=== PATIENT | male | born 1965 | race Caucasian/White ===

== ENCOUNTER → 2021-05-11 | Outpatient (CLI) | payer MEDICARE ==
[~2021-05-11] MED LIST: LISINOPRIL20 MG PO; XANAX1 MG PO; ZANAFLEX4 MG PO
[2021-05-11 08:43] LABS: URINE BILIRUBIN NEGATIVE (Negative); URINE BLOOD NEGATIVE (Negative); URINE CLARITY CLEAR; URINE COLOR YELLOW; URINE GLUCOSE-RANDOM NEGATIVE (Negative); URINE KETONES NEGATIVE (Negative); URINE LEUKOCYTES-REFLEX NEGATIVE (Negative); URINE NITRITE-REFLEX NEGATIVE (Negative); URINE PROTEIN NEGATIVE (Negative); URINE SPECIFIC GRAVITY 1.025 (1.005-1.030); URINE UROBILINOGEN 0.2 E.U./dl (0.2-1.0)
[2021-05-11 08:46] LABS: ABSOLUTE BASOPHILS 0.1 thou/uL (0.0-0.2); ABSOLUTE EOSINOPHILS 0.2 thou/uL (0.0-0.7); ABSOLUTE LYMPHOCYTES 1.5 thou/uL (0.8-5.3); ABSOLUTE MONOCYTES 0.6 thou/uL (0.0-1.2); ABSOLUTE NEUTROPHILS 4.3 thou/uL (1.6-8.1); EOSINOPHILS 2.4 %; HEMATOCRIT 48.5 % (42.0-52.0); HEMOGLOBIN 16.7 gm/dL (14.0-18.0); LYMPHOCYTES 22.7 %; MCH 31.1 pg (26.0-34.0); MCHC 34.3 g/dL (28.0-37.0); MCV 90.5 fL (80.0-100.0); MONOCYTES 9.6 %; MPV 7.2 fl. (7.2-11.1); NUCLEATED RBCS 0 /100WBC; PLATELET COUNT* 245 thou/uL (150-400); POLYS 64.3 %; RBC 5.36 mil/uL (4.50-6.00); RDW-CV 14.2 % (10.5-14.5); WBC 6.8 thou/uL (4.0-11.0)
[2021-05-11 08:52] LABS: PROTIME 10.7 Seconds (9.20-11.50)
[2021-05-11 09:12] LABS: ALBUMIN 3.9 g/dL (3.4-5.0); CREATININE 1.2 mg/dL (0.6-1.3); POTASSIUM 4.2 mmol/L (3.5-5.1); TOTAL BILIRUBIN 0.4 mg/dL (<0.1-1.0); TOTAL PROTEIN 7.6 g/dL (6.4-8.2)
--- NOTE | 2021-05-12 08:08 | EKG ---
[place] [address] ELECTROCARDIOGRAM REPORT Name: ALBA LOPES Room: [facility]#: [id number] Admission: 05/11/21 Attend Phys: Alba Street, Discharge: Date of : 67 Date of Service: 05/11/2146 Report #: [id number] THIS REPORT FOR: //name// [facility] Test Date: 2021-05-11 Test Time: 09:46:13 Pat Name: ALBA LOPES Department: Room: Gender: [employer] Sealer: Javier GOMEZ RN : 1965 Requested By: Alba Street Order Number: [id number] Ahmet MD: Nitin Graves Measurements Intervals [place] Rate: 82 P: 45 ME: 124 QRS: -40 QRSD: 110 T: 45 QT: 369 QTc: 431 Interpretive Statements Sinus rhythm Left axis deviation RSR' in V1 or V2, right VCD or RVH No previous ECG available for comparison Electronically Signed On 05-12-2021 8:07:58 CDT by Nitin Graves [email or web address] <ELECTRONICALLY SIGNED> By: Nitin Graves MD, [facility] 05/12/21806 5 5 Nitin Graves MD, [facility] /EPI
== END ==
LOC: M.LAB 08:14
PROVIDERS: ATTEND Orthopaedic Surgery
DX: Z01.818 Encounter for other preprocedural examination (principal); Z01.812 Encounter for preprocedural laboratory examination; M16.11 Unilateral primary osteoarthritis, right hip

== ENCOUNTER 2021-05-17 07:04 | Observation (INO) | payer MEDICARE ==
[~2021-05-17] VITALS: Ht 188 cm; Wt 118.8 kg
--- NOTE | ~2021-05-17 | OP ---
[facility] [address] [place] [address] OPERATIVE REPORT Name: CHRISTIANEERICALBA Jamil Room: [address] Deyanira#: [id number] Admission: 05/17/21 Attend Phys: Hanh Torres Discharge: Date of : 67 Report #: [id number] THIS REPORT FOR: cc: Yamil Lopez James E DO Greiner, Robert F. II DO ~ DATE OF SURGERY: 05/17/2021 PREOPERATIVE DIAGNOSIS: Right hip osteoarthritis. POSTOPERATIVE DIAGNOSIS: Right hip osteoarthritis. PROCEDURE: Right total hip arthroplasty. SURGEON: Alba Street II, DO. INDUSTRIAL LOCOMOTIVE OPERATOR: None. ANESTHESIA: General endotracheal. ESTIMATED BLOOD LOSS: 300 mL. ANTIBIOTICS: Ancef preoperatively. DRAINS: Medium Hemovac. COMPLICATIONS: None. CONDITION: The patient was stable to recovery room. IMPLANTS: Listed in operative record and progress note. BRIEF HISTORY: The patient in the preoperative area. Preoperative H and P was performed. Site was marked, questions were answered. Risks and benefits were discussed with the patient in detail about surgery. The patient wished to proceed assuming all risks. DESCRIPTION OF PROCEDURE: The patient was taken to the operative suite, placed supine on the operating table, given appropriate anesthesia. Patient's hip was placed in the [place] table leg pena and sterilely prepped and draped in supine position. Surgery began by longitudinal incision over the anterior portion of the hip. This was carried down to subcutaneous tissues. A small gunnar was then made in the tensor fascia and it was split along its fibers and retracted laterally. An H capsulotomy was then performed and careful hemostasis was maintained with electrocautery and Aquamantys. The head and neck cutting alignment guide was then checked under fluoroscopic [place] [address] OPERATIVE REPORT Name: ALBA LOPES Room: [address] James Mcmillan#: [id number] Admission: 05/17/21 Attend Phys: Hanh Torres Discharge: Date of : 67 Report #: [id number] was made to the head and neck and this was removed. Attention was turned to the acetabulum. Excess labrum was removed. It was then reamed in sequential fashion up to appropriate size. This showed excellent bleeding bone and excellent position on fluoroscopic guidance. The acetabular cup was malleted in position and secured with cancellous screws. Metal liner was then applied. The patient's leg was then rotated in the [place] table to expose the femur. It was then broached in sequential fashion up to appropriate size. The appropriate neck was then trialed with appropriate head length and shown to have excellent fit and fill and excellent stability of the hip through all range of motion. These trials were then removed. The final stem was then malleted into position and the final head was then malleted into position. It was reduced in appropriate fashion, checked with C-arm for appropriate leg length and showed to have excellent leg length throughout the exam without evidence of dislocation upon range of motion and shuck testing. Wound was then copiously irrigated. Hemostasis was maintained with electrocautery and cautery wand. The pain with a cocktail was injected. The H capsulotomy was then closed with #1 Vicryl in [id number] fashion. Tensor fascia was closed with #1 Vicryl in running fashion. Skin was closed with 2-0 Vicryl and a running 3-0 Monocryl. Dermabond and sterile dressing applied. The patient was transported to recovery in stable condition. Counts were correct throughout the procedure. By: [id number] II, DO /nt
[2021-05-17 16:58] VITALS: BP 133/79
--- NOTE | 2021-05-17 18:50 | NUR ---
PT WAS BROUGHT UP TO ROOM PER BED FROM PACU. PT HAS WORKED WITH THERAPY ALREADY AND GOT UP AND WALKED TO THE BATHROOM. VSS AFEBRILE. WILL CONTINUE TO MONITOR PLAN OF CARE.
[2021-05-17 20:00] VITALS: BP 140/91
[2021-05-17 23:49] VITALS: BP 103/57
[2021-05-18 04:00] VITALS: BP 114/62
[2021-05-18 04:51] LABS: HEMATOCRIT 36.2 % (42.0-52.0); HEMOGLOBIN 12.5 gm/dL (14.0-18.0)
--- NOTE | 2021-05-18 06:06 | NUR ---
ASSUMED PT CARE AT 1930. PT ALERT AND ORIENTED X4, POLITE AND COOPERATIVE WITH CARES. IVF AND ABX INFUSING TO LEFT HAND WITIHOUT DIFFICULTY. PT UP TO BATHROOM WITH CONTACT GUARD ASSIST, GAIT BELT AND WALKER. SMALL STOOL X1. HEMOVAC AND DRESSING TO RIGHT HIP INTACT. HEMOVAC EMPTIED AT 2040 OF 200 CC'S AND AGAIN AT 0120 OF 110 CC'S. MESSAGE LEFT FOR DR. ARAUJO THAT OUTPUT EXCEEDED 3OO CC'S. NO NEW ORDERS. PT WEARING CAPNO OVERNIGHT. BILAT FOOTPUMPS IN USE. AT BEDSIDE OVERNIGHT. CALL LIGHT IN REACH, BED ALARM ON FOR SAFETY. HOURLY ROUNDING IN PROGRESS, WILL CONTINUE TO MONITOR.
[2021-05-18 08:09] VITALS: BP 123/78
[2021-05-18 13:14] VITALS: BP 123/78
[2021-05-18 13:32] VITALS: BP 123/78
--- NOTE | 2021-05-18 14:04 | NUR ---
DISCHARGE HOME IN STABLE CONDITION. RIGHT HIP DRESSING REINFORCED WITH OBSITE. PT VERBALIZED UNDERSTANDING TO ALL DISCHARGE INSTRUCTIONS AND FOLLOW UP DOCTOR VISITS. PT DISCHARGED HOME, TAKEN OUT BY ALEXANDRA. IV LEFT HAND DC'D WITH CATH CANNULA INTACT. PRESSURE APPLIED UNTIL BLEEDING CEASED AND COTTON BALL AND TAPE APPLIED. PT TAKEN OUT BY TECH TO FRONT DOOR. TAKING PT HOME.
[2021-05-18 14:08] VITALS: BP 123/78
--- NOTE | 2021-05-18 16:37 | NUR ---
Case Management Assessment CM met with pt to complete assessment. Pt reports he resides with partner in an apartment. Pt reproted he would like to return home at discharge and has support in the home. Pt reported being independent with ADLs. Pt reported having a cane and walker. Pt reproted past HH services in [place] with an unknown agency. PT denied history of rehab or skilled services. Pt to be discharged today with HH through [facility] and plans to complete PT with [facility].
== END 2021-05-18 14:04 | disposition home or self-care (01) ==
LOC: M.TBA 07:04 → M.ORTHSURG 10:52 → M.3W 16:23
PROVIDERS: Orthopaedic Surgery; ADMIT Internal Medicine; ATTEND Internal Medicine
DX: M16.11 Unilateral primary osteoarthritis, right hip (principal); Z20.822 Contact with and (suspected) exposure to COVID-19; Z88.8 Allergy status to other drugs, medicaments and biological substances; Z79.899 Other long term (current) drug therapy; Z87.891 Personal history of nicotine dependence